=== PATIENT | female | born 1960 | race American Indian/Alaskan Native ===

== ENCOUNTER 2018-03-10 18:23 | Emergency (ER) | payer OTHER ==
[~2018-03-10] VITALS: Ht 160 cm; Wt 54.4 kg
[2018-03-10] MEDS ORDERED: Prednisone20 MG PO (20:13)
[2018-03-10] MEDS ORDERED: IBUP600 PO (20:13)
[2018-03-10] MEDS ORDERED: ALBU90OI INH (20:13)
== END 2018-03-10 22:37 | disposition home or self-care (01) ==
LOC: ER 18:23
DX: J44.9 Chronic obstructive pulmonary disease, unspecified (principal); F17.200 Nicotine dependence, unspecified, uncomplicated
CPT/HCPCS: 94640